=== PATIENT | female | born 1995 | race Asian ===

== ENCOUNTER 2023-12-11 09:18 | Emergency (ER) | payer MEDICAID ==
[~2023-12-11] VITALS: Ht 167.6 cm; Wt 77.0 kg
[2023-12-11 09:20] VITALS: O2SAT 98
[2023-12-11] MEDS: DULOXETINE HCL 60MG DR CAPSULE PO ONE (09:58)
[2023-12-11 11:11] VITALS: BP 130/80; PULSE 80; RESP 16; TEMP 98.2
== END 2023-12-11 12:55 | disposition home or self-care (01) ==
LOC: ER 09:18
DX: F31.9 Bipolar disorder, unspecified (principal)
CPT/HCPCS: 81025; 99283

== ENCOUNTER 2023-12-23 15:44 | Emergency (ER) | payer MEDICAID ==
[~2023-12-23] VITALS: Ht 165.1 cm; Wt 65.0 kg
[2023-12-23 15:49] VITALS: TEMP 97.9; O2SAT 99
[2023-12-23 16:47] LABS: BASOPHILS % 0.3 % (0.0-2.0); EOSINOPHILS % 1.8 % (0.0-5.0); HEMATOCRIT. 32.7 % (36.0-48.0); MEAN CORPUSCULAR HEMOGLOBIN 29.8 pg (28.0-32.0); MEAN CORPUSCULAR HGB CONC 33.8 g/dL (31.0-37.0); MEAN CORPUSCULAR VOLUME 88.1 fL (81.0-99.0); MEAN PLATELET VOLUME 7.1 fl (7.4-10.4); MONOCYTES % 7.6 % (2.0-8.0); NEUTROPHILS % 48.3 % (40.0-76.0); PLATELET 295 x1000/uL (130-400); RED BLOOD CELL COUNT 3.71 mill/uL (4.2-5.4); RED CELL DISTRIBUTION WIDTH 13.1 % (11.6-14.6)
[2023-12-23 16:53] LABS: CHLORIDE 106 mEq/L (98-107); POTASSIUM 3.6 mEq/L (3.5-5.1); SODIUM 139 mEq/L (136-145)
[2023-12-23 16:54] LABS: CALCIUM 9.5 mg/dL (8.7-10.4); CARBON DIOXIDE 32 mEq/L (21-32)
[2023-12-23] MEDS: ACETAMINOPHEN 325MG TABLET PO ONE (16:55)
[2023-12-23] MEDS: SODIUM CHLORIDE 0.9% 1,000 ML IV ONE (16:55)
[2023-12-23 16:59] LABS: CREATININE 0.7 mg/dL (0.6-1.0); GLUCOSE 120 mg/dL (70-105); UREA NITROGEN BLOOD 6 mg/dL (9-23)
[2023-12-23 17:04] LABS: ETHANOL BLOOD < 10 mg/dL (<10); HCG SCREEN NEGATIVE; TROPONIN I HIGH SENSITIVITY < 4 ng/L (3.0-34)
[2023-12-23 17:13] LABS: D-DIMER 5.59 mg/L FEU (<0.50); PROTHROMBIN TIME 11.5 sec (9.6-11.0)
[2023-12-23 18:37] LABS: *AMPHETAMINES SCREEN URINE PRESUMPTIVE POSITIVE (NEGATIVE); *BARBITURATES SCREEN URINE NEGATIVE (NEGATIVE); *BENZODIAZEPINES SCREEN URINE NEGATIVE (NEGATIVE); *COCAINE SCREEN URINE NEGATIVE (NEGATIVE); ECSTASY MDMA SCREEN URINE NEGATIVE (NEGATIVE); METHADONE URINE SCREEN NEGATIVE (NEGATIVE); OPIATES URINE SCREEN NEGATIVE (NEGATIVE); PHENCYCLIDINE URINE SCREEN PRESUMTIVE POSITIVE (NEGATIVE)
[2023-12-23 18:52] LABS: CANNABINOID URINE SCREEN NEGATIVE (NEGATIVE)
[2023-12-23 19:03] LABS: TROPONIN I HIGH SENSITIVITY < 4 ng/L (3.0-34)
[2023-12-23 21:33] VITALS: BP 112/85; PULSE 76; RESP 16
== END 2023-12-23 23:22 | disposition home or self-care (01) ==
LOC: ER 15:44
DX: R55 Syncope and collapse (principal); F31.9 Bipolar disorder, unspecified; Z88.0 Allergy status to penicillin
CPT/HCPCS: 80305; 80048; 80320; 84703; 83880; 85025; 85379; 85610; 84484; 36415; 71045; 70450; 93005; 96360; 99285; J7030; G0480